=== PATIENT | female | born 1930 | race Caucasian/White ===

== ENCOUNTER 2017-08-22 03:16 | Inpatient (IN) | payer OTHER, MEDICARE ==
[~2017-08-22] VITALS: Ht 152.4 cm; Wt 52.2 kg
[2017-08-22 03:16] VITALS: BP_SYST 168
[~2017-08-22 03:16] MED LIST: ACET-2165 PO; ASPI-1063 PO; HYDR25TA4 PO; NITR4.9S3 TL; OLME20TA14 PO; [UNRECOGNIZED DRUG - CODE] PO
[2017-08-22] MEDS ORDERED: NACL 0.9% 1,000 ML IV ONE (03:23)
[2017-08-22] MEDS ORDERED: MORPHINE 2 MG/ML INJ. SYRINGE IVP ONE ×2 (03:30→04:45)
[2017-08-22] MEDS ORDERED: ONDANSETRON HCL 4 MG/2 ML VIAL IVP ONE (03:30)
[2017-08-22 03:51] LABS: WHITE BLOOD COUNT (AUTO) 6.8 K/uL (4.8-10.8)
[2017-08-22 03:52] LABS: BASOPHILS # (AUTO) 0.1 K/uL (0.0-0.2); BASOPHILS % (AUTO) 1.3 % (0.0-2.0); EOSINOPHILS # (AUTO) 0.2 K/uL (0.0-0.4); HEMOGLOBIN 14.5 g/dL (12.0-16.0); LYMPHOCYTES # (AUTO) 1.9 K/uL (1.0-5.5); MEAN CORPUSCULAR HEMOGLOBIN 30 pg (27-31); MEAN CORPUSCULAR HGB CONC 33 % (32-36); MEAN CORPUSCULAR VOLUME 91 fL (79.0-98.0); MONOCYTES # (AUTO) 0.8 K/uL (0.0-1.0); NEUTROPHILS # (AUTO) 3.8 K/uL (1.8-7.7); NEUTROPHILS % (AUTO) 55.7 % (40.0-70.0); PLATELET COUNT (AUTO) 197 K/uL (130-430); RED BLOOD CELL COUNT(AUTO) 4.83 MIL/uL (4.2-6.2); RED CELL DISTRIBUTION WIDTH 12.5 % (9.0-15.0)
[2017-08-22 04:34] LABS: BILIRUBIN,URINE NEGATIVE (NEGATIVE); BLOOD, URINE NEGATIVE (NEGATIVE); CLARITY/URINE CLOUDY (CLEAR); COLOR,URINE YELLOW (YELLOW); GLUCOSE,URINE NEGATIVE (NEGATIVE); KETONES,URINE NEGATIVE (NEGATIVE); LEUKOCYTE ESTERASE ,URINE NEGATIVE (NEGATIVE); NITRITE, URINE NEGATIVE (NEGATIVE); PH,URINE 7.5 (5.0-8.0); PROTEIN URINE NEGATIVE (NEGATIVE); UROBILINOGEN,URINE 0.2 (0.2-1.0)
[2017-08-22 04:34] LABS: ANION GAP 7 (5-15); CHLORIDE 102 mmol/L (98-107); CREATININE 0.52 mg/dL (0.55-1.30); GLUCOSE 95 mg/dL (70-99); SODIUM SERUM 140 mmol/L (136-145); UREA NITROGEN, BLOOD 30 mg/dL (8-21)
[2017-08-22 04:39] LABS: ALANINE AMINOTRANSFERASE 26 U/L (12-78); ALBUMIN 3.8 g/dL (3.4-4.8); ASPARTATE AMINOTRANSFERASE 24 U/L (10-37); TOTAL BILIRUBIN 0.5 mg/dL (0.0-1.0)
[2017-08-22 04:41] LABS: POTASSIUM 2.8 mmol/L (3.5-5.1)
[2017-08-22] MEDS ORDERED: POTASSIUM CHLORIDE 20 MEQ TAB.PRT.SR PO ONE ×2 (04:45→06:00)
[2017-08-22] MEDS ORDERED: KCL 20 mEq in 100 mL (PREMIX) 100 ML IV ONE (04:45)
[2017-08-22] MEDS ORDERED: NIFE-2 PO (05:15)
[2017-08-22] MEDS ORDERED: HYG25 PO (05:15)
[2017-08-22] MEDS ORDERED: CLOP75TA2 PO (05:15)
[2017-08-22] MEDS ORDERED: VITD2000 PO (05:15)
[2017-08-22] MEDS ORDERED: POTA8TAB4 PO (05:15)
[2017-08-22] MEDS ORDERED: PREDEYE1% OP (05:15)
[2017-08-22] MEDS ORDERED: DIPHENHYDRAMINE INJ 50 MG/ML VIAL IVP ONE (05:30)
[2017-08-22] MEDS ORDERED: MORPHINE 4 MG/ML INJ. SYRINGE IVP ONE (05:30)
[2017-08-22] MEDS ORDERED: ONDANSETRON HCL 4 MG/2 ML VIAL IVP PRN (06:00)
[2017-08-22 06:53] VITALS: BP_SYST 132
[2017-08-22] MEDS: MORPHINE 4 MG/ML INJ. SYRINGE IVP PRN (09:42)
[2017-08-22] MEDS ORDERED: D5/0.45 NS 1,000 ML IV SCH (10:15)
[2017-08-22 10:44] LABS: ANION GAP 4 (5-15); CALCIUM 9.3 mg/dL (8.4-11.0); CHLORIDE 105 mmol/L (98-107); CREATININE 0.46 mg/dL (0.55-1.30); GLUCOSE 115 mg/dL (70-99); POTASSIUM 3.5 mmol/L (3.5-5.1); SODIUM SERUM 138 mmol/L (136-145); UREA NITROGEN, BLOOD 23 mg/dL (8-21)
[2017-08-22] MEDS: D5LR 1,000 ML IV SCH (11:18)
[2017-08-22 11:56] LABS: PFT COLLAGEN/ADP 102 SECONDS (64-106); PFT COLLAGEN/EPINEPHRINE 169 SECONDS (80-184)
[2017-08-22 12:14] VITALS: BP_SYST 117
[2017-08-22 17:04] VITALS: BP_SYST 113
[2017-08-22] MEDS: NIFEDIPINE 30 MG TAB.ER.24 PO SCH (17:09)
[2017-08-22] MEDS: MORPHINE 2 MG/ML INJ. SYRINGE IVP PRN ×2 (17:27→23:05)
[2017-08-22] MEDS ORDERED: MEPROBAMATE PO SCH (18:00)
[2017-08-22 20:18] VITALS: BP_SYST 113
[2017-08-22] MEDS: MEPROBAMATE PO SCH (21:00)
[2017-08-22] MEDS: POTASSIUM CHLORIDE 20 MEQ TAB.PRT.SR PO SCH (21:25)
[2017-08-22] MEDS: prednisoLONE 1% OPHTHALMIC SUSPN 5 ML OP SCH (21:25)
[2017-08-22 23:53] VITALS: BP_SYST 121
[2017-08-23 03:51] VITALS: BP_SYST 136
[2017-08-23] MEDS: D5LR 1,000 ML IV SCH ×2 (04:30→20:34)
[2017-08-23] MEDS: MORPHINE 2 MG/ML INJ. SYRINGE IVP PRN ×2 (05:59→14:19)
[2017-08-23 06:27] LABS: ANION GAP 1 (5-15); BASOPHILS % (AUTO) 0.5 % (0.0-2.0); CALCIUM 8.8 mg/dL (8.4-11.0); CHLORIDE 105 mmol/L (98-107); EOSINOPHILS # (AUTO) 0.2 K/uL (0.0-0.4); EOSINOPHILS % (AUTO) 2.3 % (0.0-4.0); GLUCOSE 106 mg/dL (70-99); HEMATOCRIT 36.2 % (36-48); LYMPHOCYTES % (AUTO) 14.5 % (20.5-51.5); MEAN CORPUSCULAR HEMOGLOBIN 31 pg (27-31); MEAN CORPUSCULAR HGB CONC 33 % (32-36); MEAN CORPUSCULAR VOLUME 93 fL (79.0-98.0); MONOCYTES # (AUTO) 0.7 K/uL (0.0-1.0); MONOCYTES % (AUTO) 10.3 % (1.7-9.3); NEUTROPHILS # (AUTO) 4.9 K/uL (1.8-7.7); NEUTROPHILS % (AUTO) 72.4 % (40.0-70.0); PLATELET COUNT (AUTO) 161 K/uL (130-430); POTASSIUM 3.1 mmol/L (3.5-5.1); RED CELL DISTRIBUTION WIDTH 12.2 % (9.0-15.0); SODIUM SERUM 139 mmol/L (136-145); UREA NITROGEN, BLOOD 15 mg/dL (8-21); WHITE BLOOD COUNT (AUTO) 6.8 K/uL (4.8-10.8)
[2017-08-23 08:11] VITALS: BP_SYST 136
[2017-08-23] MEDS ORDERED: POTASSIUM CHLORIDE 8 MEQ TABLET.SA PO SCH (09:00)
[2017-08-23] MEDS ORDERED: CHOLECALCIFEROL (VITAMIN D3) 2,000 UNIT TABLET PO SCH (09:00)
[2017-08-23] MEDS ORDERED: CLOPIDOGREL BISULFATE 75 MG TABLET PO SCH (09:00)
[2017-08-23] MEDS ORDERED: LR 1,000 ML IV ONE (09:43)
[2017-08-23] MEDS ORDERED: DIPHENHYDRAMINE INJ 50 MG/ML VIAL IVP PRN (09:45)
[2017-08-23] MEDS ORDERED: NALBUPHINE HCL 10 MG/ML AMP IVP PRN (09:45)
[2017-08-23] MEDS ORDERED: fentaNYL CITRATE/PF 100 MCG/2 ML AMP IVP PRN (09:45)
[2017-08-23] MEDS ORDERED: NALOXONE HCL 0.4 MG/ML AMP (NARCAN) IVP PRN (09:45)
[2017-08-23] MEDS ORDERED: ePHEDrine sulfate 50 MG/ML VIAL IVP PRN (09:45)
[2017-08-23] MEDS ORDERED: ONDANSETRON HCL 4 MG/2 ML VIAL IVP PRN ×2 (09:45)
[2017-08-23] MEDS ORDERED: POLYMYXIN 500,000/BACIT.10,000 UNITS in NS IRR 1 L IR ONE (10:38)
[2017-08-23] MEDS ORDERED: HYDROcodone/ACETAMIN 5-325 MG TAB (NORCO/ VICODIN) PO PRN (11:30)
[2017-08-23] MEDS ORDERED: MILK OF MAGNESIA 30 ML UDC PO PRN (11:30)
[2017-08-23] MEDS: CHLORTHALIDONE 25 MG TABLET (HYGROTON) PO SCH (14:20)
[2017-08-23] MEDS: ASPIRIN 81 MG TABLET(ECOTRIN) PO SCH (14:20)
[2017-08-23] MEDS: POTASSIUM CHLORIDE 20 MEQ TAB.PRT.SR PO SCH ×2 (14:28→20:33)
[2017-08-23] MEDS ORDERED: KCL 40 mEq in D5W 1000 mL 1,000 ML IV SCH (14:45)
[2017-08-23] MEDS ORDERED: POTASSIUM CHLORIDE 20 MEQ TAB.PRT.SR PO ONE (15:15)
[2017-08-23] MEDS: prednisoLONE 1% OPHTHALMIC SUSPN 5 ML OP SCH ×2 (15:17→20:40)
[2017-08-23 16:46] VITALS: BP_SYST 130
[2017-08-23 17:38] VITALS: BP_SYST 135
[2017-08-23] MEDS: KETOROLAC TROMETHAMINE 15 MG VIAL IVP SCH ×2 (18:17→23:36)
[2017-08-23] MEDS: NIFEDIPINE 30 MG TAB.ER.24 PO SCH (18:17)
[2017-08-23] MEDS ORDERED: MIDAZOLAM HCL 5 MG/ML VIAL (VERSED) IV ONE (18:29)
[2017-08-23] MEDS ORDERED: CLINDAMYCIN PHOSPHATE 600 mg/50mL D5W IV ONE (18:29)
[2017-08-23] MEDS ORDERED: fentaNYL CITRATE 250 MCG/5 ML AMP IV ONE (18:29)
[2017-08-23] MEDS ORDERED: PROPOFOL 200MG/ 20ML VIAL (DIPRIVAN) IV ONE (18:29)
[2017-08-23] MEDS ORDERED: DEXAMETHASONE SOD PHOSPHATE 4 MG/ML VIAL IVP ONE (18:29)
[2017-08-23] MEDS ORDERED: LR 1,000 ML IV.SOLN IV ONE (18:29)
[2017-08-23] MEDS ORDERED: METOCLOPRAMIDE HCL 10 MG/2 ML VIAL IVP ONE (18:29)
[2017-08-23] MEDS ORDERED: SEVOFLURANE 15 MIN GAS INH ONE (18:29)
[2017-08-23] MEDS ORDERED: KETOROLAC TROMETHAMINE 30 MG VIAL IVP ONE (18:29)
[2017-08-23 19:30] VITALS: BP_SYST 101
[2017-08-23] MEDS: SENNOSIDES 8.6 MG TABLET PO SCH (20:33)
[2017-08-23] MEDS: MEPROBAMATE PO SCH (20:34)
[2017-08-23 23:44] VITALS: BP_SYST 110
[2017-08-24 03:42] VITALS: BP_SYST 112
[2017-08-24] MEDS: KETOROLAC TROMETHAMINE 15 MG VIAL IVP SCH (05:18)
[2017-08-24] MEDS: D5LR 1,000 ML IV SCH ×2 (06:13→22:03)
[2017-08-24 06:26] LABS: BASOPHILS % (AUTO) 0.3 % (0.0-2.0); EOSINOPHILS # (AUTO) 0.1 K/uL (0.0-0.4); EOSINOPHILS % (AUTO) 1.2 % (0.0-4.0); HEMATOCRIT 31.3 % (36-48); HEMOGLOBIN 10.2 g/dL (12.0-16.0); LYMPHOCYTES # (AUTO) 1.3 K/uL (1.0-5.5); LYMPHOCYTES % (AUTO) 15.7 % (20.5-51.5); MEAN CORPUSCULAR HEMOGLOBIN 30 pg (27-31); MEAN CORPUSCULAR HGB CONC 33 % (32-36); MEAN CORPUSCULAR VOLUME 93 fL (79.0-98.0); MONOCYTES # (AUTO) 0.8 K/uL (0.0-1.0); MONOCYTES % (AUTO) 9.2 % (1.7-9.3); NEUTROPHILS # (AUTO) 6.1 K/uL (1.8-7.7); NEUTROPHILS % (AUTO) 73.6 % (40.0-70.0); PLATELET COUNT (AUTO) 145 K/uL (130-430); RED BLOOD CELL COUNT(AUTO) 3.37 MIL/uL (4.2-6.2); RED CELL DISTRIBUTION WIDTH 12.3 % (9.0-15.0); WHITE BLOOD COUNT (AUTO) 8.3 K/uL (4.8-10.8)
[2017-08-24 07:03] LABS: ANION GAP 4 (5-15); CHLORIDE 108 mmol/L (98-107); CREATININE 0.58 mg/dL (0.55-1.30); GLUCOSE 103 mg/dL (70-99); POTASSIUM 3.9 mmol/L (3.5-5.1); SODIUM SERUM 141 mmol/L (136-145); UREA NITROGEN, BLOOD 16 mg/dL (8-21)
[2017-08-24 08:00] VITALS: BP_SYST 112
[2017-08-24] MEDS: ASPIRIN 81 MG TABLET(ECOTRIN) PO SCH (08:59)
[2017-08-24] MEDS: POTASSIUM CHLORIDE 20 MEQ TAB.PRT.SR PO SCH ×2 (08:59→22:05)
[2017-08-24] MEDS: CHOLECALCIFEROL (VITAMIN D3) 2,000 UNIT TABLET PO SCH (08:59)
[2017-08-24] MEDS: ENOXAPARIN SODIUM 40 MG/0.4 ML SYRINGE SUBCUT SCH (08:59)
[2017-08-24] MEDS: MULTIVITAMINS TAB 1 TABLET PO SCH (08:59)
[2017-08-24] MEDS: PANTOPRAZOLE SODIUM 40 MG TAB PO SCH (08:59)
[2017-08-24] MEDS: ASCORBIC ACID 500 MG TABLET PO SCH ×2 (08:59→22:06)
[2017-08-24] MEDS: CHLORTHALIDONE 25 MG TABLET (HYGROTON) PO SCH (09:01)
[2017-08-24] MEDS: prednisoLONE 1% OPHTHALMIC SUSPN 5 ML OP SCH ×3 (09:01→22:10)
[2017-08-24 11:23] VITALS: BP_SYST 114
[2017-08-24 16:47] VITALS: BP_SYST 137
[2017-08-24] MEDS: NIFEDIPINE 30 MG TAB.ER.24 PO SCH (17:39)
[2017-08-24] MEDS: ACETAMINOPHEN 325 MG TABLET PO PRN ×2 (17:42→23:11)
[2017-08-24 20:10] VITALS: BP_SYST 140
[2017-08-24] MEDS: SENNOSIDES 8.6 MG TABLET PO SCH (22:06)
[2017-08-24 23:50] VITALS: BP_SYST 130
[2017-08-25 03:58] VITALS: BP_SYST 123
[2017-08-25 08:00] VITALS: BP_SYST 144
[2017-08-25] MEDS: PANTOPRAZOLE SODIUM 40 MG TAB PO SCH (08:33)
[2017-08-25] MEDS: CHOLECALCIFEROL (VITAMIN D3) 2,000 UNIT TABLET PO SCH (08:33)
[2017-08-25] MEDS: MULTIVITAMINS TAB 1 TABLET PO SCH (08:33)
[2017-08-25] MEDS: MORPHINE 4 MG/ML INJ. SYRINGE IVP PRN (08:33)
[2017-08-25] MEDS: POTASSIUM CHLORIDE 20 MEQ TAB.PRT.SR PO SCH ×2 (08:33→22:09)
[2017-08-25] MEDS: ASCORBIC ACID 500 MG TABLET PO SCH ×2 (08:34→22:09)
[2017-08-25] MEDS: ENOXAPARIN SODIUM 40 MG/0.4 ML SYRINGE SUBCUT SCH (08:34)
[2017-08-25] MEDS: ASPIRIN 81 MG TABLET(ECOTRIN) PO SCH (08:34)
[2017-08-25 11:35] VITALS: BP_SYST 123
[2017-08-25] MEDS: D5LR 1,000 ML IV SCH (12:46)
[2017-08-25 15:40] VITALS: BP_SYST 141
[2017-08-25] MEDS: CHLORTHALIDONE 25 MG TABLET (HYGROTON) PO SCH (18:51)
[2017-08-25] MEDS: NIFEDIPINE 30 MG TAB.ER.24 PO SCH (18:52)
[2017-08-25 20:30] VITALS: BP_SYST 153
[2017-08-25] MEDS: prednisoLONE 1% OPHTHALMIC SUSPN 5 ML OP SCH (22:09)
[2017-08-25] MEDS: SENNOSIDES 8.6 MG TABLET PO SCH (22:09)
[2017-08-26 00:18] VITALS: BP_SYST 161
[2017-08-26] MEDS: D5LR 1,000 ML IV SCH (05:28)
[2017-08-26] MEDS: ACETAMINOPHEN 325 MG TABLET PO PRN ×2 (05:46→13:24)
[2017-08-26 05:55] VITALS: BP_SYST 158
[2017-08-26 06:28] LABS: BASOPHILS % (AUTO) 0.4 % (0.0-2.0); EOSINOPHILS # (AUTO) 0.2 K/uL (0.0-0.4); EOSINOPHILS % (AUTO) 2.3 % (0.0-4.0); HEMATOCRIT 33.1 % (36-48); HEMOGLOBIN 11.2 g/dL (12.0-16.0); LYMPHOCYTES # (AUTO) 0.8 K/uL (1.0-5.5); LYMPHOCYTES % (AUTO) 8.9 % (20.5-51.5); MEAN CORPUSCULAR HEMOGLOBIN 31 pg (27-31); MEAN CORPUSCULAR HGB CONC 34 % (32-36); MEAN CORPUSCULAR VOLUME 92 fL (79.0-98.0); MONOCYTES # (AUTO) 0.6 K/uL (0.0-1.0); MONOCYTES % (AUTO) 6.4 % (1.7-9.3); NEUTROPHILS # (AUTO) 7.1 K/uL (1.8-7.7); PLATELET COUNT (AUTO) 186 K/uL (130-430); RED BLOOD CELL COUNT(AUTO) 3.61 MIL/uL (4.2-6.2); RED CELL DISTRIBUTION WIDTH 12.7 % (9.0-15.0); WHITE BLOOD COUNT (AUTO) 8.8 K/uL (4.8-10.8)
[2017-08-26 06:55] LABS: ALANINE AMINOTRANSFERASE 20 U/L (12-78); ALBUMIN 2.5 g/dL (3.4-4.8); ANION GAP 6 (5-15); ASPARTATE AMINOTRANSFERASE 34 U/L (10-37); CALCIUM 9.2 mg/dL (8.4-11.0); CHLORIDE 102 mmol/L (98-107); CHOLESTEROL 155 mg/dL (<200); CREATININE 0.43 mg/dL (0.55-1.30); GLUCOSE 105 mg/dL (70-99); HDL CHOLESTEROL 53 mg/dL (>55); LDL CHOLESTEROL 114 mg/dL (<100); POTASSIUM 3.6 mmol/L (3.5-5.1); SODIUM SERUM 137 mmol/L (136-145); TRIGLYCERIDES 80 mg/dL (30-150); UREA NITROGEN, BLOOD 7 mg/dL (8-21)
[2017-08-26] MEDS ORDERED: CLOPIDOGREL BISULFATE 75 MG TABLET PO SCH (09:00)
[2017-08-26 09:14] VITALS: BP_SYST 147
[2017-08-26] MEDS: PANTOPRAZOLE SODIUM 40 MG TAB PO SCH (10:45)
[2017-08-26] MEDS: POTASSIUM CHLORIDE 20 MEQ TAB.PRT.SR PO SCH (10:45)
[2017-08-26] MEDS: ASCORBIC ACID 500 MG TABLET PO SCH (10:46)
[2017-08-26] MEDS: CHOLECALCIFEROL (VITAMIN D3) 2,000 UNIT TABLET PO SCH (10:46)
[2017-08-26] MEDS: MULTIVITAMINS TAB 1 TABLET PO SCH (10:46)
[2017-08-26] MEDS: prednisoLONE 1% OPHTHALMIC SUSPN 5 ML OP SCH (10:47)
[2017-08-26] MEDS: ENOXAPARIN SODIUM 40 MG/0.4 ML SYRINGE SUBCUT SCH (10:47)
[2017-08-26] MEDS: CHLORTHALIDONE 25 MG TABLET (HYGROTON) PO SCH (10:48)
[2017-08-26] MEDS: ASPIRIN 81 MG TABLET(ECOTRIN) PO SCH (10:51)
[2017-08-26 12:35] VITALS: BP_SYST 126
[2017-08-26] MEDS ORDERED: LOVI40 SUBCUT (16:15)
[2017-08-26 17:08] VITALS: BP_SYST 139
[2017-08-26] MEDS: NIFEDIPINE 30 MG TAB.ER.24 PO SCH (17:59)
[2017-08-26 18:00] VITALS: BP_SYST 129
== END 2017-08-26 18:30 | DRG 481 ==
LOC: SED 03:16 → STU 05:55 → SMU 08-23 16:25
PROVIDERS: ADMIT Internal Medicine; ATTEND Internal Medicine
PROC: 0QS704Z Reposition Left Upper Femur with Internal Fixation Device, Open Approach (ICD-10-PCS; principal; 2017-08-22)
DX: S72.142A Displaced intertrochanteric fracture of left femur, initial encounter for closed fracture (principal); D62 Acute posthemorrhagic anemia; E87.6 Hypokalemia; F41.9 Anxiety disorder, unspecified; I10 Essential (primary) hypertension; M85.80 Other specified disorders of bone density and structure, unspecified site; W01.0XXA Fall on same level from slipping, tripping and stumbling without subsequent striking against object, initial encounter; Z79.82 Long term (current) use of aspirin; Z86.73 Personal history of transient ischemic attack (TIA), and cerebral infarction without residual deficits; Z88.1 Allergy status to other antibiotic agents; Z88.0 Allergy status to penicillin; Z79.899 Other long term (current) drug therapy; Y93.89 Activity, other specified; Y92.89 Other specified places as the place of occurrence of the external cause; Y99.8 Other external cause status
CPT/HCPCS: 36415; 70450-TC; 71010; 72170-TC; 73502; 73552; 76000; 80048; 80053; 80061; 81003; 82306; 82962; 83735-TC; 85025; 85576; 85610-TC; 85730-TC; 86886; 86900; 86901; 86920; 87081; 93005; 93880; 94010; 96374; 96375; 96376; 97110-GP; 97116-GP; 97530-GP; 99285; C1713; C1769; J1100; J1200; J1650; J1885; J2250; J2270; J2405; J2704; J2765; J3010; J3480; J3490; J7030; J7120